=== PATIENT | female | born 1990 | race Caucasian/White ===

== ENCOUNTER 2016-11-01 23:45 | Emergency (ER) | payer OTHER ==
[2016-11-01 22:13] LABS: INFLUENZA A NEG (NEG); INFLUENZA B NEG (NEG)
[~2016-11-01 23:45] MED LIST: AMOXICILLIN500 M1 PO; NAPROXEN PO; ORUDIS75 M1 PO; PHENERGAN25 MG PO; PRENATAL1 TA1 PO; PYRIDIUM100 MG PO; ZANTAC PO
== END 2016-11-01 23:50 | disposition left against medical advice (07) ==
LOC: CED 23:45
PROVIDERS: Nurse Practitioner
DX: Z53.21 Procedure and treatment not carried out due to patient leaving prior to being seen by health care provider (principal)
CPT/HCPCS: 87651; 87804